=== PATIENT | female | born 1985 | race Caucasian/White ===

== ENCOUNTER 2024-04-22 08:41 | Outpatient (CLI) | payer BC, OTHER, SELFPAY ==
--- NOTE | ~2024-04-22 | US_ITS ---
EXAMINATION: US thyroid DATE: 04/22/2024 08:59 INDICATION: Thyroid nodule TECHNIQUE: Multiple ultrasound images of the thyroid were obtained. COMPARISON: None. FINDINGS: The right thyroid lobe measures 5.5 x 1.9 x 2.0 cm. The left thyroid lobe measures 5.3 x 1.8 x 1.6 c m. No discrete nodules identified. There is heterogeneous echogenicity with similar nodular pattern of more hypoechoic regions with diffuse increased vascular flow on color Doppler. 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 IMPRESSION: 1. 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 Reviewed, dictated and finalized at location A. IMPRESSION: 1. Enlarged thyroid without discrete thyroid nodules but with grayscale and col or Doppler appearance consistent with Chanel's thyroiditis.
== END 2024-04-22 08:42 ==
LOC: GOSHIMG 08:43
PROVIDERS: PCP Physician Assistant; Visit Provider Internal Medicine
DX: E04.1 Nontoxic single thyroid nodule (principal)
CPT/HCPCS: 76536

== ENCOUNTER 2025-06-07 14:36 | Outpatient (CLI) | payer OTHER, SELFPAY ==
--- NOTE | ~2025-06-07 | US_ITS ---
EXAMINATION: US thyroid DATE: 06/07/2025 14:47 INDICATION: Thyroid nodule TECHNIQUE: Multiple ultrasound images of the thyroid were obtained. COMPARISON: 04/18/2024 FINDINGS: The right thyroid lobe measures 6.1 x 2.7 x 2.0 cm. The left thyroid lobe measures 4.8 x 2.1 x 2.0 cm. There is diffuse heterogeneous echogenicity throughout the thyroid with pseudo nodular pattern of decreased echogenicity along with diffuse increased vascularity on color Doppler suggestive of Michael azra/lymphocytic thyroiditis. No discrete thyroid nodules identified. IMPRESSION: 1. Persistent enlarged thyroid without discrete nodules but with grayscale and color Doppler appearance consistent with Chanel's/lymphocytic thyroiditis. Reviewed, dictated and finalized at location A.
== END 2025-06-07 14:37 | disposition home or self-care (01) ==
LOC: GOSHIMG 14:37
PROVIDERS: PCP Physician Assistant; Visit Provider Internal Medicine
DX: E06.3 Autoimmune thyroiditis (principal); E04.1 Nontoxic single thyroid nodule
CPT/HCPCS: 76536